=== PATIENT | male | born 1980 | race Caucasian/White ===

== ENCOUNTER 2019-08-26 15:15 | Emergency (ER) | payer MEDICAID ==
[~2019-08-26] VITALS: Ht 188 cm; Wt 105.2 kg
[2019-08-26 15:24] VITALS: Ht 188 cm; Wt 105.2 kg
[2019-08-26 16:23] VITALS: BP 121/92
== END 2019-08-26 16:23 | disposition home or self-care (01) ==
LOC: ED 15:15
DX: I88.9 Nonspecific lymphadenitis, unspecified (principal)

== ENCOUNTER 2019-12-29 13:51 | Emergency (ER) | payer OTHER ==
[~2019-12-29] VITALS: Ht 188 cm; Wt 105.7 kg
[2019-12-29 15:12] VITALS: Ht 188 cm; Wt 105.7 kg
[2019-12-29 17:05] VITALS: BP 135/76
== END 2019-12-29 17:05 | disposition home or self-care (01) ==
LOC: ED 13:51
DX: S60.222A Contusion of left hand, initial encounter (principal); S60.221A Contusion of right hand, initial encounter; V87.8XXA Person injured in other specified noncollision transport accidents involving motor vehicle (traffic), initial encounter; Y93.89 Activity, other specified; Y92.89 Other specified places as the place of occurrence of the external cause; Y99.8 Other external cause status